=== PATIENT | female | born 1930 | race Caucasian/White ===

== ENCOUNTER 2019-12-29 13:17 | Emergency (ER) | payer MEDICARE, MEDICAID ==
[~2019-12-29] VITALS: Ht 149.9 cm; Wt 45.4 kg
[~2019-12-29 13:17] MED LIST: A200/25 PO; ADVAIR DISKUS1 DS2 IH; ALENDRONATE SOD70 M2 PO; ALPHAGAN P5 M1 OP; AMBIEN5 MG PO; ANTIVERT/2525 MG PO; ASPIRIN PO; ATORVASTATIN CA40 M1 PO; BUM1 PO; CIPROFLOXACIN500 MG PO; CLA10 PO; CLOPIDOGREL75 M1 PO; CYCLOBENZAPRINE5 MG PO; DIOVAN160 MG PO; DIPYRIDAMOLE PO; DORZOLAMIDE HYD10 M2 OD; DORZOLAMIDE HYD10 M5 OP; DORZOLAMIDE HYD10 ML OU; ECO81 PO; FOS10 PO; FOSAMAX70 MG PO; FUROSEMIDE20 MG PO; GABAPENTIN600 M1 PO; GLU500 PO; HYDROCODONE/ACE1 TA6 PO; JANUVIA100 M1 PO; JANUVIA50 M1 PO; KLOR-CON 88 MEQ PO; KLOR-CON M1010 MEQ PO; L20 PO; LACTULOSE10 GM/152 PO; LANTUS SOLOS100 U/M1 SC; LASIX20 MG PO; LIPI20 PO; LIPITOR40 MG PO; LOP50 PO; MAG PO; MAGNESIUM OXID400 MG PO; METFORMIN ER500 M1 PO; METFORMIN HYD1000 M1 PO; METOPROLOL TART25 M1 PO; MOBIC15 MG PO; NEU300 PO; NIT0.4 SL; OMEPRAZOLE DR20 M1 PO; PRI20 PO; PRILOSEC20 MG PO; PROAIR HFA0.09 MG/A1 IH; PROAIR HFA0.09 MG/A1 INH; RANEXA500 M1 PO; ROB750 PO; SOD1 PO; TEGRETOL200 MG PO; ZIT250 PO; ZOS3PM IV
[2019-12-29 13:24] VITALS: Ht 149.9 cm; Wt 45.4 kg
[2019-12-29 14:52] LABS: BASOPHIL % 0.3 % (0-2); PLATELET COUNT 223 x10^3mcL (130-400); RED CELL DISTRIBUTION WIDTH 14.4 % (11.5-14.5)
[2019-12-29 15:00] LABS: CALCIUM 8.3 mg/dL (8.5-10.1); CARBON DIOXIDE 22.1 mmol/L (21-32); CHLORIDE SERUM 97 mmol/L (98-107); GLUCOSE SERUM 91 mg/dL (74-106); POTASSIUM SERUM 4.1 mmol/L (3.5-5.1); SODIUM SERUM 130 mmol/L (136-145)
[2019-12-29 15:05] LABS: ALBUMIN 3.4 g/dL (3.4-5.0); ALKALINE PHOSPHATASE 37 U/L (46-116); ALT/SGPT 14 U/L (14-59); AST/SGOT 16 U/L (15-37); BILIRUBIN TOTAL 0.3 mg/dL (0.20-1.00); TOTAL PROTEIN, SERUM 7.5 g/dL (6.4-8.2)
[2019-12-29 15:40] LABS: microscopic required? YES; urine erythrocyte TRACE (NEGATIVE)
[2019-12-29 17:02] VITALS: BP 122/74
== END 2019-12-29 17:02 | disposition home or self-care (01) ==
LOC: ED 13:17
PROVIDERS: Emergency Medicine
DX: J10.1 Influenza due to other identified influenza virus with other respiratory manifestations (principal)
CPT/HCPCS: 36415; 87804; Q0092